=== PATIENT | male | born 1955 | race Caucasian/White ===

== ENCOUNTER 2017-01-23 11:08 | Emergency (ER) | payer MEDICARE ==
[~2017-01-23] VITALS: Ht 175.3 cm; Wt 92.7 kg
[~2017-01-23 11:08] MED LIST: ALBU8.5H2 IH; ASCO60LO10 PO; CA C1TAB88 PO; FURO-128 PO; LACT10SO27 PO; MAGN250T29 PO; MULT-285 PO; RIFA550T3 PO; SPIR25TA PO
[2017-01-23 11:27] VITALS: BP 200/83; PULSE 54; RESP 17; O2SAT 99
--- NOTE | 2017-01-23 11:36 | ED.REPORT ---
HPI-Extremity Problem Upper Date of Service Jan 23, 2017 ED Provider: Doc,Ed MD History of Present Illness: noticed redness on right hand 2nd mcp yesterday. no change in activity. no hx of arthritis. [facility] is primary care. liver transplant 10/2014 at phone numbr is [phone]. last visit 12/17/2016. right hand dominant 04/25 Nursing Notes Stated Complaint: SWOLLEN RIGHT HAND/POSSIBLE ANIMAL BITE Chief Complaint: Skin Rash/Abscess Nursing Notes Reviewed: Yes Allergies: Coded Allergies: No Known Allergies (Verified Allergy, Unknown, 01/23/17) Scheduled Ascorbic Acid ([place] [employer]) 60 Mg Lozenge 1-2 LOZENGE PO BID 106mg vitamin c per 2 lozenges Ca Carbonate/Vitamin D3/Vit K (Viactiv Soft Chew Tablet) 1 Each Tab.chew 2 EACH PO BID Furosemide (Lasix) 40 Mg Tablet 40 MG PO DAILY Magnesium Oxide (Magnesium) 250 Mg Tablet 250 MG PO QPM Multivitamin (Multi-Day Vitamins) 1 Each Tablet 1 EACH PO DAILY Rifaximin (Xifaxan) 550 Mg Tablet 550 MG PO BID Spironolactone (Aldactone) 25 Mg Tablet 100 MG PO DAILY Scheduled PRN Albuterol HFA (Proair HFA) 8.5 Gm Hfa.aer.ad 2 PUFFS IH Q4 PRN PRN For Shortness of Breath Lactulose (Lactulose) 10 Gm/15 Ml Solution 60-90 GM PO BID PRN PRN titrated to 3 bm/day General Time Seen by MD: 11:35 Chief Complaint Hand injury right Hx Obtained From: Patient Onset Occurred: Yesterday Symptom Duration: Since onset Severity: Current: Pain level 7 out of 10 Past Medical History Past Medical History 1. Hepatic cirrhosis secondary to hepatitis C due to IV drug abuse 15 years ago. 2. Chronic hyponatremia. 3. Chronic thrombocytopenia. 4. History of hepatic encephalopathy. 5. Chronic lower extremity edema associated with cirrhosis of the liver. 6. Esophageal varices. 7. History of alcoholism but not current abuse. 8. Hypertension. 9. Vericose veins Past Surgical History liver transplant 10/2014 Family History Notable for sister with lupus. Mother had alcoholic liver disease. Smoking History Former Smoker (quit 3 years ago), Unknown if Ever Smoker Social History The patient lives with his . He has a distant history of IV drug use and there is no reported history of alcohol abuse or tobacco use at this time. Alcohol Use: Denies alcohol use Drug Use: Denies drug use Other Social History: Occupation lives with no work or school at this time 01/23/2017 Ambulatory Status Independent Review of Systems Basic Review of Systems Eyes: Vision NL, No discharge : No dysuria, No frequency Psychiatric: Normal thought content Physical Exam Initial Vital Signs Vital Signs (First) Date Time Temp Pulse Resp B/P Pulse Ox O2 Delivery O2 Flow Rate FiO2 01/23/17 11:27 36.7 54 17 200/83 99 Room Air Initial VS: Reviewed, Vital signs abnormal General/Constitutional: Well-developed, Well-nourished Abdomen / GI: Soft, Non-tender, No guarding, No rebound, No distention Psychiatric: Mood/affect normal, Behavior normal, Normal thought content General/Constitutional: Awake, Alert, No acute distress, Well appearing, Well developed, Well hydrated, Well nourished, Cooperative, Not toxic appearing Respiratory / Chest: Atraumatic, Breath sounds NL, Breath sounds = bilat, No respiratory distress Cardiovascular: Heart rate NL, Regular rhythm, Heart sounds NL, No gallop Upper Extremity / MS: Atraumatic, Inspection NL, Full range of motion, No swelling, Non-tender redness and increased warmth is centered over right 2nd MCP. patient has full range of motion, sensation intact distally. cap refill less than 2 sec. Interpretation & Diagnostics Lab Results Interpretation Result Diagram: 01/23/17 1207 01/23/17 1207 Test 01/23/17 12:07 White Blood Count 14.4th/mm3 (3.8-10.1) Red Blood Count 4.77mil/mm3 (4.40-5.80) Hemoglobin 14.2g/dL (13.8-17.2) Hematocrit 40.6% (41.0-50.0) Mean Corpuscular Volume 85.1fL (81-100) Mean Corpuscular Hemoglobin 29.8pg (27.0-35.0) Mean Corpuscular Hemoglobin Concent 35.0% (32.0-37.0) Red Cell Distribution Width 14.4% (12.3-15.4) Platelet Count 204bil/L (150-400) Neutrophils (%) (Auto) 85.5% (40-74) Lymphocytes (%) (Auto) 5.3% (14-46) Monocytes (%) (Auto) 6.1% (4-12) Eosinophils (%) (Auto) 2.3% (0-5) Basophils (%) (Auto) 0.2% (0-3) Erythrocyte Sedimentation Rate 15mm/hr (0-30) Sodium Level 139mEq/L (134-144) Potassium Level 4.7mEq/L (3.5-5.2) Chloride Level 101mEq/L (97-108) Carbon Dioxide Level 24mmol/L (18-29) Blood Urea Nitrogen 14mg/dL (8-27) Creatinine 1.02mg/dL (0.76-1.27) Estimat Glomerular Filtration Rate 78mL/min (>59) Glucose Level 124mg/dL (60-99) Calcium Level 9.8mg/dL (8.5-10.1) Magnesium Level 1.8mg/dL (1.6-2.6) Total Bilirubin 0.9mg/dL (0.0-1.2) Aspartate Amino Transf (AST/SGOT) 24U/L (0-50) Alanine Aminotransferase (ALT/SGPT) 26U/L (0-44) Alkaline Phosphatase 68U/L (25-160) C-Reactive Protein 0.2mg/dL (0.0-0.5) Total Protein 7.7g/dL (6.4-8.4) Albumin 4.4g/dL (3.4-5.0) Hold Miller Top Tube Received (Received) X-Ray Interpretation Xray Interpretation: no fracture noted Re-Eval/Medical Decision Med Decision/Clinical Course 61 year male with hx of liver transplant 10/2014 presents for evualation for right hand redness and erthyma. Started yesterday with no known injury. right hand dominant. Consult with Caitlyn STEIN at transplant clinic at 1420 regarding plan. Agrees with plan but is also reguesting the liver enzymes need to be drawn on repeat visit also. No sign of compartment syndrome or fracture. Discharge & Departure Impression: Primary Impression: Cellulitis Laterality: right Additional Impression: Abnormal blood pressure Disposition: Home Patient Instructions: Cellulitis (ED) Additional Instructions: Your white count shows an elevation of 14. Your liver enzymes are normal. continue on bactrim in the am and pm for 7 days. Use keflex 500 mg in the am and pm for 7 days. For pain control use tylenol 650 mg with a max of 2 gm a day. The area of redness has been outlined, timed and dated. REturn if the redness goes outside the line by more than 1 inch. You are also being splinted to minimize movement. REturn on Tuesday for a recheck, sooner if the redness increases or if you have any concerns. I consulted with the transplant team, they agree with the plan and have requested that repeat liver enzymes be drawn when you return for your recheck on Tuesday. You blood pressure is still elevated. Please continue to work on addressing that. [facility] ([facility] EDSupervising Provider for APC: Sourav Stratton MD [facility]: [facility] Ashleigh Antoine Jan 23, 2017 11:35
[2017-01-23 12:40] LABS: BASOPHILS % (AUTO) 0.2 % (0-3); EOSINOPHILS % (AUTO) 2.3 % (0-5); MONOCYTES % (AUTO) 6.1 % (4-12); Mean Corpuscular Hemoglobin 29.8 pg (27.0-35.0); Mean Corpuscular Volume 85.1 fL (81-100); NEUTROPHILS % (AUTO) 85.5 % (40-74); Platelet Count 204 bil/L (150-400)
[2017-01-23 12:57] LABS: Magnesium 1.8 mg/dL (1.6-2.6)
[2017-01-23] MEDS ORDERED: cefTRIAXone Inj 1,000 MG in Dextrose 5% Minibag Plus 50 ML IV ONE (13:20)
[2017-01-23] MEDS ORDERED: 0.9% Sodium Chloride 1,000 ML IV ONE (13:20)
[2017-01-23] MEDS ORDERED: Trimethoprim-Sulfa 160 mg-800 mg Tablet PO ONE (13:20)
[2017-01-23 13:42] LABS: ERYTHROCYTE SEDIMENTATION RATE 15 mm/hr (0-30)
[2017-01-23 14:04] VITALS: BP 180/78; PULSE 55; O2SAT 99
[2017-01-23 15:21] VITALS: BP 180/85; PULSE 55; RESP 16; O2SAT 100
--- NOTE | 2017-01-24 05:59 | DRSVH ---
PROCEDURE: X-RAY RIGHT HAND, MINIMUM THREE VIEWS ([id number]) INDICATIONS: swelling and erthyma TECHNIQUE: 3 views of the hand(s) acquired. COMPARISON: None. FINDINGS: Bones: No fractures or dislocations. Carpal bones are normally aligned. No suspicious bony lesions . Possible erosion seen at the renal margin of the PIP joint of the index finger. Mild diffuse degen erative spurring Soft tissues: No suspicious soft tissue calcifications. IMPRESSION: Possible small erosion involving the PIP joint of the index finger raising possibility of erosive art hropathy. However the remainder of examination is unremarkable. Recommend clinical correlation Dictated by: Jc Victor M.D. on 01/23/2017 at 13:07 Approved by: Jc Victor M.D. on 01/23/2017 at 13:13
== END 2017-01-23 14:47 | disposition home or self-care (01) ==
LOC: SED 11:08
DX: L03.113 Cellulitis of right upper limb (principal); I10 Essential (primary) hypertension; Z87.891 Personal history of nicotine dependence; Z87.39 Personal history of other diseases of the musculoskeletal system and connective tissue; Z94.4 Liver transplant status
CPT/HCPCS: 73130; 80053; 83735; 85025; 85651; 86140; 87040; 96361; 96365; 99285; J0696; J7030